=== PATIENT | female | born 1995 | race Caucasian/White ===

== ENCOUNTER 2016-06-21 21:13 | Emergency (ER) | payer BC ==
[~2016-06-21] VITALS: Ht 162.6 cm; Wt 56.7 kg
[2016-06-21 21:22] VITALS: TEMP 37; Ht 162.6 cm; Wt 56.7 kg
[2016-06-21] MEDS ORDERED: BCPILLS PO (22:15)
[2016-06-21 23:00] LABS: MANUAL MICROSCOPIC REQUIRED? NO; REVIEW REQ? NO; URINE APPEARANCE CLEAR (CLEAR); URINE BILIRUBIN NEG (NEG); URINE COLOR YELLOW; URINE EPITHELIAL CELL AUTO >30 /lpf (0-5); URINE NITRITE NEG (NEG); URINE PH 5.5 (4.5-7.5); URINE SPECIFIC GRAVITY 1.019 (1.000-1.030); UROBILINOGEN NEG (NEG)
[2016-06-21 23:36] LABS: BASO % 0.2 %; BASO ABS # 0.02 K/uL (0-0.2); COMPLETE YES; EOS % 0.4 %; HEMATOCRIT 38.6 % (37-47); IG% 0.1 %; LYMPH % 31.5 %; LYMPH ABS # 2.91 K/uL (1.2-3.4); MEAN CELL VOLUME 85.4 fL (80-100); MEAN CORPUSCULAR HEMOGLOBIN 29.6 pg (25-34); MEAN CORPUSCULAR HGB CONC 34.7 g/dl (32-36); MONO % 7.8 %; PLATELET COUNT 187 K/uL (130-400); RED BLOOD COUNT 4.52 M/uL (4.2-5.4); WHITE BLOOD COUNT 9.24 K/uL (4.8-10.8)
[2016-06-22] LABS: BUN/CREATININE RATIO 18.5 (10-20); CALCIUM 9.1 mg/dl (8.5-10.1); CREATININE 0.64 mg/dl (0.60-1.20); POTASSIUM 3.7 mmol/L (3.5-5.1)
[2016-06-22] MEDS ORDERED: SULF800T23 PO (01:18)
[2016-06-22 01:30] VITALS: BP 136/76; PULSE 85; O2SAT 100
[2016-06-22] MEDS ORDERED: SEPTRA DS HOME PACK 1 EA VIAL PO ONE (01:30)
--- NOTE | 2016-06-22 06:31 | DIAGNOSTIC IMAGING REPORT ---
PELVIC ULTRASOUND CLINICAL HISTORY: Lower abdominal pain. COMPARISON STUDY: None. TECHNIQUE: Transabdominal and transvaginal sonography of the pelvis was performed. FINDINGS: The uterus measures 7.3 x 3 x 4.4 cm. Endometrium measures 9 mm in thickness. There is fluid within the cervix. There is no free fluid within the pelvis. The right ovary measures 3.2 x 1.9 x 1.7 cm and the left measures 4.2 x 3.9 x 3.4 cm. There is a 3.2 cm cystic lesion within the left ovary that contains a smaller cystic structure suggestive of a cumulus oophorus. This represents a dominant follicle. IMPRESSION: 1. 3.2 cm dominant follicle within the left ovary. 2. Unremarkable sonographic appearance of the uterus and right ovary. 3. No sonographic evidence of ovarian torsion. Electronically signed by: Saran Coates M.D. 06/22/2016 6:30 AM Dictated Date/Time: 06/22/2016 6:27 AM
--- NOTE | 2016-06-22 06:38 | EMERGENCY ROOM VISIT NOTE ---
History First contact with patient: 21:34 Chief Complaint: ABDOMINAL PAIN Stated Complaint: INTENSE STOMACH PAIN IN LWR STOMACH FOR 3 DAYS Nursing Triage Summary: low abdominal pain since thurs, + urinary freq and burning History of Present Illness The patient is a 21 year old female who presents to the Emergency Room with complaints of urinary frequency and urgency with bladder discomfort for the past few days. Patient denies back pain, chest pain, dyspnea, fever, chills, nausea, vomiting, vaginal itching or discharge. No recent bladder infections. No recent antibiotics. She does not feel at risk for STIs. Review of Systems See HPI for pertinent positives & negatives. A total of 10 systems reviewed and were otherwise negative. Past Medical/Surgical History [place] extraction Social History Smoking Status: Never Smoker Smokeless Tobacco Use: No Alcohol Use: none Drug Use: none Marital Status: in relationship Occupation Status: [employer] student Current/Historical Medications Scheduled Control Pills ( Control Pills), 1 TAB PO QPM Sulfa/Trimethoprim (Bactrim Ds 800MG/160MG), 1 TAB PO BID Allergies Coded Allergies: No Known Allergies (Unverified , 06/21/16) Physical Exam Vital Signs Date Time Temp Pulse Resp B/P Pulse Ox O2 Delivery O2 Flow Rate FiO2 06/22/16 01:30 85 18 136/76 100 06/21/16 23:30 90 18 128/69 99 Room Air 06/21/16 21:22 37.0 77 16 148/88 99 Room Air Physical Exam VITALS: Vitals are noted on the nurse's note and reviewed by myself. Vital signs stable. GENERAL: Pleasant female, in no acute distress, nondiaphoretic, well-developed well-nourished. SKIN: Capillary reflex less than 2 seconds. HEENT: Normocephalic. PERRLA. EOMI. Nares patent. Mucous membranes moist. Neck is supple without nuchal rigidity. HEART: Regular rate and rhythm without murmurs gallops or rubs. LUNGS: Clear to auscultation bilaterally without wheezes, rales or rhonchi. No retractions or accessory muscle use. ABDOMEN: Positive bowel sounds x 4. Normal tympanic percussion. Soft, minimal bladder discomfort, all other quadrants are nontender, without masses or organomegaly. Gillespie sign negative. No guarding or rebound tenderness. No CVA tenderness MUSCULOSKELETAL: No gross musculoskeletal defects. NEURO: Patient was alert and oriented to person place and time. Normal sensation to light and sharp touch. No focal neurological deficits. Medical Decision & Procedures Laboratory Results 06/21/16 23:25 Red Blood Count 4.52, Mean Corpuscular Volume 85.4, Mean Corpuscular Hemoglobin 29.6, Mean Corpuscular Hemoglobin Concent 34.7, Mean Platelet Volume 10.0, Neutrophils (%) (Auto) 60.0, Lymphocytes (%) (Auto) 31.5, Monocytes (%) (Auto) 7.8, Eosinophils (%) (Auto) 0.4, Basophils (%) (Auto) 0.2, Neutrophils # (Auto) 5.54, Lymphocytes # (Auto) 2.91, Monocytes # (Auto) 0.72, Eosinophils # (Auto) 0.04, Basophils # (Auto) 0.02 06/21/16 23:25 Test 06/21/16 21:18 06/21/16 21:58 06/21/16 23:25 Urine Test NEG (NEG) Urine Color YELLOW Urine Appearance CLEAR (CLEAR) Urine pH 5.5 (4.5-7.5) Urine Specific [place] 1.019 (1.000-1.030) Urine Protein NEG (NEG) Urine Glucose (UA) NEG (NEG) Urine Ketones NEG (NEG) Urine Occult Blood TRACE (NEG) Urine Nitrite NEG (NEG) Urine Bilirubin NEG (NEG) Urine Urobilinogen NEG (NEG) Urine Leukocyte Esterase NEG (NEG) Urine WBC (Auto) 1-5 /hpf (0-5) Urine RBC (Auto) 0-4 /hpf (0-4) Urine Hyaline Casts (Auto) 0 /lpf (0-5) Urine Epithelial Cells (Auto) >30 /lpf (0-5) Urine Bacteria (Auto) NEG (NEG) White Blood Count 9.24 K/uL (4.8-10.8) Red Blood Count 4.52 M/uL (4.2-5.4) Hemoglobin 13.4 g/dL (12.0-16.0) Hematocrit 38.6 % (37-47) Mean Corpuscular Volume 85.4 fL (80-100) Mean Corpuscular Hemoglobin 29.6 pg (25-34) Mean Corpuscular Hemoglobin Concent 34.7 g/dl (32-36) Platelet Count 187 K/uL (130-400) Mean Platelet Volume 10.0 fL (7.4-10.4) Neutrophils (%) (Auto) 60.0 % Lymphocytes (%) (Auto) 31.5 % Monocytes (%) (Auto) 7.8 % Eosinophils (%) (Auto) 0.4 % Basophils (%) (Auto) 0.2 % Neutrophils # (Auto) 5.54 K/uL (1.4-6.5) Lymphocytes # (Auto) 2.91 K/uL (1.2-3.4) Monocytes # (Auto) 0.72 K/uL (0.11-0.59) Eosinophils # (Auto) 0.04 K/uL (0-0.5) Basophils # (Auto) 0.02 K/uL (0-0.2) RDW Standard Deviation 38.1 fL (36.4-46.3) RDW Coefficient of Variation 12.2 % (11.5-14.5) Immature Granulocyte % (Auto) 0.1 % Immature Granulocyte # (Auto) 0.01 K/uL (0.00-0.02) Anion Gap 9.0 mmol/L (3-11) Est Creatinine Clear Calc Drug Dose 121.2 ml/min Estimated GFR () 148.9 Estimated GFR (Non- 128.5 BUN/Creatinine Ratio 18.5 (10-20) Calcium Level 9.1 mg/dl (8.5-10.1) Medications Administered Medications (Trade) Dose Ordered Sig/Anayeli Route Start Time Stop Time Status Last Admin Dose Admin Trimethoprim/ Sulfamethoxazole (Sulfameth/ Trimeth Ds 800/ 160MG Home Pack) 1 homepack UD ONCE PO 06/22/16 01:30 06/22/16 01:31 DC 06/22/16 01:27 1 HOMEPACK ED Course Prior records/ancillary studies reviewed. Triage Nursing notes reviewed. Additional history obtained from friend. The patient's history was concerning for urinary symptoms. Differential diagnosis: Etiologies such as appendicitis, UTI, infections, renal colic, STI, as well as others were entertained. Physical examination findings: As above. ER treatment provided: BD, Pyridium On reassessment the patient felt better. Diagnostics interpreted by me: The labs revealed urine dip was not overly concerning for further workup was ordered. No white count.. Negative hCG. Ultrasound was read by stat radiology with no torsion Family history seem consistent with lower abdominal discomfort most likely nonacute in nature. Patient was symptomatically for UTI so was started on antibiotics for possible early UTI. Patient had no CVA tenderness. No fever. She was well-appearing. She is started on antibiotics. No recent infections. She is advised drink plenty of fluids to flush her bladder and to follow-up health services in a few days or here in the ER sooner for fevers, vomiting, back pain, worsening signs or symptoms or as needed.By the evaluation outlined above emergent etiologies such as appendicitis, renal colic, as well as others were deemed relatively unlikely. The pt informed about the findings as listed above. All questions were answered and pleased with the treatment. Return instructions were outlined and the patient was discharged in stable condition. Outpatient prescription management: BD Referral: The patient was referred back to their primary care physician and/or [employer] for follow-up in 2 to 3 days for a recheck of the current condition. Medical Decision As above Impression Primary Impression: UTI (urinary tract infection) Additional Impression: Bilateral lower abdominal discomfort Departure Information Dispostion Home / Self-Care Condition GOOD Prescriptions Sulfa/Trimethoprim (Bactrim Ds 800MG/160MG) Tab 1 TAB PO BID for 3 Days, #6 TAB Prov: Court Fulton .NATHALIE 06/22/16 Patient Instructions [facility] Additional Instructions Trimethoprim-Sulfamethoxazole(Bactrim DS): Take one pill twice daily for 7 days for your urine infection. All antibiotics can cause diarrhea. If this occurs and you feel worse or it does not resolve in 1-2 days follow up with your doctor or return to the Emergency Department as this could be signs of serious underlying problems. Any medication can cause an allergic reaction, stop the pills immediately and return to the ER for rash, hives, breathing difficulties, or swelling. Pyridium 200mg: Take one pill three times daily as needed for urinary discomfort. This medication will turn your urine orange. This is normal and nothing to be concerned about. Ibuprofen(Motrin, Advil) may be used for fever or pain. Use 600mg every six hours as needed. Take with food. Avoid using more than 2400mg in a 24 hour period. Do not use 2400mg per day for more than three consecutive days without physician direction. Prolonged inappropriate use can lead to stomach upset or ulcers. (AND/OR) Acetaminophen(Tylenol) may be used for fever or pain. Use 1000mg every six hours as needed. Avoid using more than 3000mg in a 24 hour period. Rest and drink plenty of fluids as tolerated. Slow sips of water or sports drinks are recommended instead of large amounts all at once. Continue current medications. Once your stomach is settled start with a clear liquid diet (jello, soup broth, etc.) and then advance as tolerated. You should avoid full, heavy meals for about 24 hrs from the time your symptoms resolved. Return to the ER immediately for worsening or persistent abdominal/back pain, vomiting, fevers, worsening of your condition, or as needed. Follow up with your primary physician within 2-3 days for a recheck of the current condition. Problem Qualifiers Primary Impression: UTI (urinary tract infection) Urinary tract infection type: acute cystitis Hematuria presence: without hematuria Qualified Codes: N30.00 - Acute cystitis without hematuria
== END 2016-06-22 01:31 | disposition home or self-care (01) ==
LOC: C.EDB 21:15
DX: N30.00 Acute cystitis without hematuria (principal); R10.31 Right lower quadrant pain; R10.32 Left lower quadrant pain; Z79.3 Long term (current) use of hormonal contraceptives